=== PATIENT | male | born 1975 | race Caucasian/White ===

== ENCOUNTER 2018-10-06 18:52 | Emergency (ER) | payer OTHER ==
[2018-10-06 18:58] VITALS: BP 124/78; PULSE 74; TEMP 98.2; BMI 25.8
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
== END 2018-10-06 19:29 | disposition home or self-care (01) ==
LOC: JERFT 18:52
DX: R05 Cough (principal); T17.290A Other foreign object in pharynx causing asphyxiation, initial encounter; X58.XXXA Exposure to other specified factors, initial encounter; Y93.11 Activity, swimming; Y92.34 Swimming pool (public) as the place of occurrence of the external cause; Y99.8 Other external cause status
CPT/HCPCS: 99281-25